=== PATIENT | female | born 1940 | race Two or more races ===

== ENCOUNTER 2018-05-13 13:31 | Emergency (ER) | payer OTHER ==
[~2018-05-13] VITALS: Ht 152.4 cm; Wt 45.4 kg
[2018-05-13] MEDS ORDERED: TOPAMAX15 MG (13:52)
[2018-05-13] MEDS ORDERED: ZANAFLEX4 M1 (13:52)
== END 2018-05-13 17:23 | disposition home or self-care (01) ==
LOC: ER 13:31
DX: D64.89 Other specified anemias (principal)